=== PATIENT | male | born 1960 | race Caucasian/White ===

== ENCOUNTER → 2016-09-28 | Outpatient (REF) | payer OTHER ==
[2016-09-28 13:27] LABS: ALBUMIN 3.9 GM/DL (3.2-5.2); ALKALINE PHOSPHATASE 76 U/L (45-117); ALT/SGPT 36 U/L (12-78); ANION GAP 9 MEQ/L (8-16); AST/SGOT 19 U/L (15-37); BILIRUBIN,TOTAL 0.6 MG/DL (0.2-1.0); BLOOD UREA NITROGEN 21 MG/DL (7-18); CALCIUM LEVEL 8.9 MG/DL (8.5-10.1); CARBON DIOXIDE LEVEL 29 MEQ/L (21-32); CHLORIDE LEVEL 107 MEQ/L (98-107); CHOLESTEROL LEVEL 198 MG/DL (<200); CREATININE FOR GFR 1.05 MG/DL (0.70-1.30); GLOMERULAR FILTRATION RATE > 60.0 (>56); GLUCOSE, FASTING 85 MG/DL (70-105); POTASSIUM SERUM 4.4 MEQ/L (3.5-5.1); SODIUM LEVEL 145 MEQ/L (136-145); TOTAL PROTEIN 6.5 GM/DL (6.4-8.2); TRIGLYCERIDES LEVEL 100 MG/DL (<150)
== END ==
LOC: M LABSMT 12:23
PROVIDERS: ATTEND Family Medicine
DX: E03.9 Hypothyroidism, unspecified (principal); E78.5 Hyperlipidemia, unspecified

== ENCOUNTER → 2017-02-25 | Outpatient (REF) | payer OTHER ==
[2017-02-25 14:23] LABS: BASO % 0.8 % (0.0-1.0); EOS # 0.3 K/mm3 (0.0-0.50); EOS % 6.3 % (0.0-3.0); LARGE UNSTAINED CELL # 0.1 K/mm3 (0.0-0.4); LARGE UNSTAINED CELL % 1.9 % (0.0-4.0); LYMPH # 1.1 K/mm3 (1.5-4.5); LYMPH % 23.1 % (24.0-44.0); MEAN CORPUSCULAR HEMOGLOBIN 32.8 pg (27.0-33.0); MEAN CORPUSCULAR HGB CONC 35.5 g/dl (32.0-36.5); MEAN CORPUSCULAR VOLUME 92.2 fl (80.0-96.0); MONO # 0.4 K/mm3 (0.0-0.8); MONO % 9.5 % (0.0-5.0); NEUTROPHILS # 2.5 K/mm3 (1.8-7.7); NEUTROPHILS % 58.4 % (36.0-66.0); PLATELET COUNT, AUTOMATED 192 k/mm3 (150-450); RED CELL DISTRIBUTION WIDTH 11.8 % (11.5-14.5); WHITE BLOOD COUNT 4.3 K/mm3 (4.0-10.0)
[2017-02-25 14:24] LABS: ALBUMIN 3.8 GM/DL (3.2-5.2); ALBUMIN/GLOBULIN RATIO 1.46 (1.00-1.93); ALKALINE PHOSPHATASE 68 U/L (45-117); ALT/SGPT 39 U/L (12-78); ANION GAP 6 MEQ/L (8-16); AST/SGOT 20 U/L (15-37); BILIRUBIN,TOTAL 0.7 MG/DL (0.2-1.0); BLOOD UREA NITROGEN 22 MG/DL (7-18); CALCIUM LEVEL 8.7 MG/DL (8.5-10.1); CARBON DIOXIDE LEVEL 31 MEQ/L (21-32); CHLORIDE LEVEL 105 MEQ/L (98-107); CHOLESTEROL LEVEL 192 MG/DL (<200); CREATININE FOR GFR 1.03 MG/DL (0.70-1.30); GLOMERULAR FILTRATION RATE > 60.0 (>56); GLUCOSE, FASTING 95 MG/DL (70-105); POTASSIUM SERUM 4.1 MEQ/L (3.5-5.1); SODIUM LEVEL 142 MEQ/L (136-145); TOTAL PROTEIN 6.4 GM/DL (6.4-8.2); TRIGLYCERIDES LEVEL 86 MG/DL (<150)
== END ==
LOC: M LABDRWAD 13:08
PROVIDERS: ATTEND Family Medicine
DX: Z00.00 Encounter for general adult medical examination without abnormal findings (principal); R73.9 Hyperglycemia, unspecified

== ENCOUNTER → 2017-11-19 | Outpatient (REF) | payer OTHER | LOC: M LABDRWAD 13:21 | DX: E03.9 Hypothyroidism, unspecified (principal) ==

== ENCOUNTER → 2017-12-10 | Outpatient (CLI) | payer OTHER | LOC: M SLEEP 19:51 | DX: G47.30 Sleep apnea, unspecified (principal) ==

== ENCOUNTER → 2018-03-12 | Outpatient (REF) | payer OTHER ==
[2018-03-12 13:29] LABS: HEMATOCRIT 42.7 % (42.0-52.0); HEMOGLOBIN 15.5 g/dl (13.5-17.5); MEAN CORPUSCULAR HEMOGLOBIN 33.3 pg (27.0-33.0); MEAN CORPUSCULAR HGB CONC 36.3 g/dl (32.0-36.5); MEAN CORPUSCULAR VOLUME 91.8 fl (80.0-96.0); PLATELET COUNT, AUTOMATED 211 10^3/uL (150-450); RED BLOOD COUNT 4.65 10^6/uL (4.30-6.10); RED CELL DISTRIBUTION WIDTH 11.2 % (11.5-14.5); WHITE BLOOD COUNT 3.8 10^3/uL (4.0-10.0)
[2018-03-12 14:18] LABS: ALBUMIN 3.8 GM/DL (3.2-5.2); ALBUMIN/GLOBULIN RATIO 1.36 (1.00-1.93); ALKALINE PHOSPHATASE 75 U/L (45-117); ALT/SGPT 65 U/L (12-78); ANION GAP 6 MEQ/L (8-16); AST/SGOT 40 U/L (7-37); BILIRUBIN,TOTAL 0.7 MG/DL (0.2-1.0); BLOOD UREA NITROGEN 19 MG/DL (7-18); CALCIUM LEVEL 8.5 MG/DL (8.5-10.1); CARBON DIOXIDE LEVEL 29 MEQ/L (21-32); CHLORIDE LEVEL 108 MEQ/L (98-107); CHOLESTEROL LEVEL 164 MG/DL (<200); CHOLESTEROL RISK RATIO 3.489 (<5); CREATININE FOR GFR 0.96 MG/DL (0.70-1.30); GLOMERULAR FILTRATION RATE > 60.0 (>56); GLUCOSE, FASTING 98 MG/DL (70-100); HDL CHOLESTEROL 47 MG/DL (>40); LDL CHOLESTEROL 102.6 MG/DL (<100); NON-HDL-C 117 MG/DL; POTASSIUM SERUM 4.3 MEQ/L (3.5-5.1); PROSTATIC SPECIFIC AG MONITOR 2.54 NG/ML (< 4.0); SODIUM LEVEL 143 MEQ/L (136-145); TOTAL PROTEIN 6.6 GM/DL (6.4-8.2); TRIGLYCERIDES LEVEL 72 MG/DL (<150)
== END ==
LOC: M LABDRWAD 12:29
DX: Z00.00 Encounter for general adult medical examination without abnormal findings (principal)

== ENCOUNTER → 2018-12-03 | Outpatient (REF) | payer OTHER ==
[2018-12-03 20:14] LABS: BLOOD UREA NITROGEN 20 MG/DL (7-18); CALCIUM LEVEL 8.6 MG/DL (8.5-10.1); CARBON DIOXIDE LEVEL 35 MEQ/L (21-32); CHLORIDE LEVEL 107 MEQ/L (98-107); CREATININE FOR GFR 0.98 MG/DL (0.70-1.30); GLOMERULAR FILTRATION RATE > 60.0 (>56); GLUCOSE, FASTING 65 MG/DL (70-100); POTASSIUM SERUM 4.5 MEQ/L (3.5-5.1); SODIUM LEVEL 144 MEQ/L (136-145)
[2018-12-03 20:18] LABS: HEMATOCRIT 45.9 % (42.0-52.0); HEMOGLOBIN 15.9 g/dl (13.5-17.5); MEAN CORPUSCULAR HEMOGLOBIN 32.4 pg (27.0-33.0); MEAN CORPUSCULAR HGB CONC 34.6 g/dl (32.0-36.5); MEAN CORPUSCULAR VOLUME 93.5 fl (80.0-96.0); PLATELET COUNT, AUTOMATED 223 10^3/uL (150-450); RED BLOOD COUNT 4.91 10^6/uL (4.30-6.10); WHITE BLOOD COUNT 4.3 10^3/uL (4.0-10.0)
== END ==
LOC: M LABDRWAD 19:29
PROVIDERS: ATTEND Surgery
DX: K40.90 Unilateral inguinal hernia, without obstruction or gangrene, not specified as recurrent (principal)

== ENCOUNTER → 2019-02-23 | Outpatient (REF) | payer OTHER ==
[2019-02-23 13:36] LABS: HEMATOCRIT 45.2 % (42.0-52.0); HEMOGLOBIN 15.9 g/dl (13.5-17.5); MEAN CORPUSCULAR HEMOGLOBIN 32.6 pg (27.0-33.0); MEAN CORPUSCULAR HGB CONC 35.2 g/dl (32.0-36.5); MEAN CORPUSCULAR VOLUME 92.6 fl (80.0-96.0); PLATELET COUNT, AUTOMATED 229 10^3/uL (150-450); RED BLOOD COUNT 4.88 10^6/uL (4.30-6.10); WHITE BLOOD COUNT 4.4 10^3/uL (4.0-10.0)
== END ==
LOC: M LABDRWAD 12:47
PROVIDERS: ATTEND Family Medicine
DX: Z00.00 Encounter for general adult medical examination without abnormal findings (principal)

== ENCOUNTER → 2019-03-24 | Outpatient (REF) | payer OTHER ==
[2019-03-24 12:52] LABS: ALBUMIN 3.6 GM/DL (3.2-5.2); ALT/SGPT 54 U/L (12-78); BILIRUBIN,TOTAL 0.5 MG/DL (0.2-1.0); BLOOD UREA NITROGEN 19 MG/DL (7-18); CALCIUM LEVEL 8.2 MG/DL (8.5-10.1); CARBON DIOXIDE LEVEL 29 MEQ/L (21-32); CHLORIDE LEVEL 109 MEQ/L (98-107); CHOLESTEROL LEVEL 168 MG/DL (<200); CHOLESTEROL RISK RATIO 3.574 (<5); CREATININE FOR GFR 0.99 MG/DL (0.70-1.30); FREE T4 0.99 NG/DL (0.76-1.46); GLOMERULAR FILTRATION RATE > 60.0 (>56); GLUCOSE, FASTING 91 MG/DL (70-100); HDL CHOLESTEROL 47 MG/DL (>40); LDL CHOLESTEROL 106 MG/DL (<100); NON-HDL-C 121 MG/DL; POTASSIUM SERUM 4.3 MEQ/L (3.5-5.1); PROSTATIC SPECIFIC AG MONITOR 2.81 NG/ML (< 4.00); SODIUM LEVEL 144 MEQ/L (136-145); TOTAL PROTEIN 6.3 GM/DL (6.4-8.2); TRIGLYCERIDES LEVEL 76 MG/DL (<150)
== END ==
LOC: M LABDRWAD 12:14
PROVIDERS: ATTEND Family Medicine
DX: Z00.00 Encounter for general adult medical examination without abnormal findings (principal)

== ENCOUNTER → 2019-10-07 | Outpatient (REF) | payer OTHER ==
[2019-10-07 13:43] LABS: FREE T4 1.05 NG/DL (0.76-1.46); THYROID STIMULATING HORMONE 2.15 uIU/ML (0.358-3.740)
== END ==
LOC: M LABDRWAD 12:56
PROVIDERS: ATTEND Family Medicine
DX: E03.9 Hypothyroidism, unspecified (principal)

== ENCOUNTER → 2020-01-12 | Outpatient (REF) | payer OTHER ==
[2020-01-12 13:00] LABS: HEMATOCRIT 47.9 % (42.0-52.0); HEMOGLOBIN 17.1 g/dl (13.5-17.5); MEAN CORPUSCULAR HEMOGLOBIN 33.6 pg (27.0-33.0); MEAN CORPUSCULAR HGB CONC 35.7 g/dl (32.0-36.5); MEAN CORPUSCULAR VOLUME 94.1 fl (80.0-96.0); PLATELET COUNT, AUTOMATED 229 10^3/uL (150-450); RED BLOOD COUNT 5.09 10^6/uL (4.30-6.10); WHITE BLOOD COUNT 4.9 10^3/uL (4.0-10.0)
[2020-01-12 13:18] LABS: ALBUMIN 3.8 GM/DL (3.2-5.2); ALT/SGPT 43 U/L (12-78); BILIRUBIN,TOTAL 0.8 MG/DL (0.2-1.0); BLOOD UREA NITROGEN 21 MG/DL (7-18); CALCIUM LEVEL 8.8 MG/DL (8.5-10.1); CARBON DIOXIDE LEVEL 30 MEQ/L (21-32); CHLORIDE LEVEL 108 MEQ/L (98-107); CHOLESTEROL LEVEL 173 MG/DL (<200); CHOLESTEROL RISK RATIO 4.325 (<5); CREATININE FOR GFR 0.99 MG/DL (0.70-1.30); GLOMERULAR FILTRATION RATE > 60.0 (>56); GLUCOSE, FASTING 87 MG/DL (70-100); HDL CHOLESTEROL 40 MG/DL (>40); LDL CHOLESTEROL 113 MG/DL (<100); NON-HDL-C 133 MG/DL; SODIUM LEVEL 141 MEQ/L (136-145); TOTAL PROTEIN 6.7 GM/DL (6.4-8.2); TRIGLYCERIDES LEVEL 99 MG/DL (<150)
== END ==
LOC: M LABDRWAD 12:32
PROVIDERS: ATTEND Family Medicine
DX: Z00.00 Encounter for general adult medical examination without abnormal findings (principal)

== ENCOUNTER → 2020-05-09 | Outpatient (REF) | payer OTHER ==
[2020-06-25 23:07] LABS: BASO # 0.1 10^3/uL (0.0-0.2); EOS # 0.2 10^3/uL (0.0-0.5); EOS % 3.7 % (0.0-3.0); HEMATOCRIT 47.1 % (42.0-52.0); HEMOGLOBIN 16.6 g/dl (13.5-17.5); LYMPH # 1.5 10^3/uL (1.5-5.0); MEAN CORPUSCULAR HGB CONC 35.2 g/dl (32.0-36.5); MEAN CORPUSCULAR VOLUME 96.5 fl (80.0-96.0); MONO # 0.6 10^3/uL (0.0-0.8); MONO % 12.9 % (0.0-5.0); NEUTROPHILS # 2.6 10^3/uL (1.5-8.5); NEUTROPHILS % 52.2 % (36.0-66.0); PLATELET COUNT, AUTOMATED 229 10^3/uL (150-450); RED BLOOD COUNT 4.88 10^6/uL (4.30-6.10); WHITE BLOOD COUNT 4.9 10^3/uL (4.0-10.0)
[2020-07-04 21:32] LABS: HEMOGLOBIN A1c 4.9 %
[2020-07-05 00:43] LABS: ALT/SGPT 54 U/L (12-78); BILIRUBIN,TOTAL 0.7 MG/DL (0.2-1.0); BLOOD UREA NITROGEN 19 MG/DL (7-18); CALCIUM LEVEL 8.8 MG/DL (8.8-10.2); CARBON DIOXIDE LEVEL 30 MEQ/L (21-32); CHLORIDE LEVEL 106 MEQ/L (98-107); CK-MB VALUE MASS 5.2 NG/ML (<3.6); CPK CREATINE PHOSPHOKINASE 373 U/L (39-308); CREATININE FOR GFR 1.08 MG/DL (0.70-1.30); GLOMERULAR FILTRATION RATE > 60.0 (>49); GLUCOSE, FASTING 90 MG/DL (70-100); MB/CK RELATIVE INDEX 1.39 (< OR =4); POTASSIUM SERUM 4.3 MEQ/L (3.5-5.1); SODIUM LEVEL 140 MEQ/L (136-145); THYROXINE (T4) 10.1 UG/DL (4.5-12.0); TOTAL PROTEIN 6.8 GM/DL (6.4-8.2); TROPONIN I < 0.02 NG/ML (< 0.10)
== END ==
LOC: M LABDRWAD 15:23
PROVIDERS: ATTEND Family Medicine
DX: R07.9 Chest pain, unspecified (principal); R53.81 Other malaise; R73.9 Hyperglycemia, unspecified

== ENCOUNTER → 2020-09-25 | Outpatient (CLI) | payer SELFPAY | LOC: M LABSMTC 09:53 | PROVIDERS: ATTEND Pediatrics | DX: Z20.828 Contact with and (suspected) exposure to other viral communicable diseases (principal) ==

== ENCOUNTER → 2021-01-18 | Outpatient (REF) | payer OTHER ==
[2021-01-18 14:34] LABS: HEMATOCRIT 43.7 % (42.0-52.0); HEMOGLOBIN 15.2 g/dl (13.5-17.5); MEAN CORPUSCULAR HEMOGLOBIN 32.3 pg (27.0-33.0); MEAN CORPUSCULAR HGB CONC 34.8 g/dl (32.0-36.5); MEAN CORPUSCULAR VOLUME 92.8 fl (80.0-96.0); PLATELET COUNT, AUTOMATED 228 10^3/uL (150-450); RED BLOOD COUNT 4.71 10^6/uL (4.30-6.10); WHITE BLOOD COUNT 3.9 10^3/uL (4.0-10.0)
[2021-01-18 15:13] LABS: ALBUMIN 3.7 GM/DL (3.2-5.2); ALT/SGPT 47 U/L (12-78); BILIRUBIN,TOTAL 0.8 MG/DL (0.2-1.0); BLOOD UREA NITROGEN 25 MG/DL (7-18); CALCIUM LEVEL 9.4 MG/DL (8.8-10.2); CARBON DIOXIDE LEVEL 29 MEQ/L (21-32); CHLORIDE LEVEL 106 MEQ/L (98-107); CHOLESTEROL LEVEL 170 MG/DL (<200); CHOLESTEROL RISK RATIO 3.953 (<5); CREATININE FOR GFR 0.94 MG/DL (0.70-1.30); GLOMERULAR FILTRATION RATE > 60.0 (>49); GLUCOSE, FASTING 78 MG/DL (70-100); HDL CHOLESTEROL 43 MG/DL (>40); LDL CHOLESTEROL 111 MG/DL (<100); NON-HDL-C 127 MG/DL; POTASSIUM SERUM 4.8 MEQ/L (3.5-5.1); SODIUM LEVEL 139 MEQ/L (136-145); TOTAL PROTEIN 6.3 GM/DL (6.4-8.2); TRIGLYCERIDES LEVEL 78 MG/DL (<150)
== END ==
LOC: M LABDRWAD 13:12
PROVIDERS: ATTEND Family Medicine
DX: Z00.00 Encounter for general adult medical examination without abnormal findings (principal)
CPT/HCPCS: 36415; 80053; 80061; 84443; 85027; G0103

== ENCOUNTER → 2022-01-22 | Outpatient (CLI) | payer OTHER ==
[2022-01-22 13:02] LABS: HEMATOCRIT 42.7 % (42.0-52.0); HEMOGLOBIN 14.9 g/dl (13.5-17.5); MEAN CORPUSCULAR HEMOGLOBIN 33.3 pg (27.0-33.0); MEAN CORPUSCULAR HGB CONC 34.9 g/dl (32.0-36.5); MEAN CORPUSCULAR VOLUME 95.5 fl (80.0-96.0); PLATELET COUNT, AUTOMATED 217 10^3/uL (150-450); RED BLOOD COUNT 4.47 10^6/uL (4.30-6.10); WHITE BLOOD COUNT 4.2 10^3/uL (4.0-10.0)
[2022-01-22 14:01] LABS: ALBUMIN 3.5 GM/DL (3.2-5.2); ALT/SGPT 33 U/L (12-78); BILIRUBIN,TOTAL 0.9 MG/DL (0.2-1.0); BLOOD UREA NITROGEN 22 MG/DL (7-18); CALCIUM LEVEL 8.4 MG/DL (8.8-10.2); CARBON DIOXIDE LEVEL 27 MEQ/L (21-32); CHLORIDE LEVEL 108 MEQ/L (98-107); CHOLESTEROL LEVEL 153 MG/DL (<200); CREATININE FOR GFR 0.97 MG/DL (0.70-1.30); GLOMERULAR FILTRATION RATE > 60.0 (>49); GLUCOSE, FASTING 89 MG/DL (70-100); HDL CHOLESTEROL 45 MG/DL (>40); LDL CHOLESTEROL 94 MG/DL (<100); NON-HDL-C 108 MG/DL; POTASSIUM SERUM 4.4 MEQ/L (3.5-5.1); SODIUM LEVEL 140 MEQ/L (136-145); TRIGLYCERIDES LEVEL 70 MG/DL (<150)
== END ==
LOC: M ADAMS 08:13
PROVIDERS: ATTEND Family Medicine
DX: Z00.00 Encounter for general adult medical examination without abnormal findings (principal)
CPT/HCPCS: 36415; 80053; 80061; 84443; 85027; G0103

== ENCOUNTER → 2022-06-25 | Outpatient (REF) | payer OTHER ==
[2022-06-25 13:05] LABS: APPEARANCE, URINE MANUAL CLEAR (CLEAR); COLOR, URINE MANUAL YELLOW (YELLOW)
[2022-06-25 13:07] LABS: BILIRUBIN, URINE MANUAL NEGATIVE (NEGATIVE); BLOOD URINE MANUAL NEGATIVE (NEGATIVE); GLUCOSE, URINE (UA) MANUAL NEGATIVE (NEGATIVE); KETONE, URINE MANUAL NEGATIVE (NEGATIVE); LEUKOCYTE ESTERASE, URINE MAN NEGATIVE (NEGATIVE); NITRITE, URINE MANUAL NEGATIVE (NEGATIVE); PROTEIN, URINE MANUAL NEGATIVE (NEGATIVE); SPECIFIC GRAVITY,URINE MANUAL 1.015 (1.002-1.035); UROBILINOGEN, URINE MANUAL NORMAL (NORMAL)
== END ==
LOC: M LABDRWAD 12:31
PROVIDERS: ATTEND Family Medicine
DX: R39.12 Poor urinary stream (principal)
CPT/HCPCS: 36415; 81002; G0103

== ENCOUNTER → 2023-03-13 | Outpatient (REF) | payer OTHER ==
[2023-03-13 12:19] LABS: HEMATOCRIT 44.2 % (42.0-52.0); HEMOGLOBIN 15.2 g/dl (13.5-17.5); MEAN CORPUSCULAR HEMOGLOBIN 32.7 pg (27.0-33.0); MEAN CORPUSCULAR HGB CONC 34.4 g/dl (32.0-36.5); MEAN CORPUSCULAR VOLUME 95.1 fl (80.0-96.0); PLATELET COUNT, AUTOMATED 224 10^3/uL (150-450); RED BLOOD COUNT 4.65 10^6/uL (4.30-6.10)
[2023-03-13 12:43] LABS: ALBUMIN 3.8 G/DL (3.2-5.2); ALKALINE PHOSPHATASE 77 U/L (46-116); ALT/SGPT 53 U/L (7.0-40); AST/SGOT 32 U/L (<34); BILIRUBIN,TOTAL 0.9 MG/DL (0.3-1.2); BLOOD UREA NITROGEN 19 MG/DL (9-23); CALCIUM LEVEL 9.1 MG/DL (8.3-10.6); CARBON DIOXIDE LEVEL 30 MMOL/L (20-31); CHLORIDE LEVEL 106 MMOL/L (98-107); CHOLESTEROL LEVEL 159 MG/DL (<200); CHOLESTEROL RISK RATIO 3.44 (<5); CREATININE FOR GFR 1.04 MG/DL (0.70-1.30); GLOMERULAR FILTRATION RATE > 60.0 (>49); GLUCOSE, FASTING 89 MG/DL (74-106); HDL CHOLESTEROL 46.1 MG/DL (>40); LDL CHOLESTEROL 101.1 MG/DL (<100); NON-HDL-C 112.9 MG/DL; POTASSIUM SERUM 4.5 MMOL/L (3.5-5.1); SODIUM LEVEL 140 MMOL/L (136-145); TRIGLYCERIDES LEVEL 59 MG/DL (<150)
[2023-03-13 12:45] LABS: THYROID STIMULATING HORMONE 3.243 uIU/ML (0.55-4.78)
== END ==
LOC: M LABDRAWC 11:04
PROVIDERS: ATTEND Family Medicine
DX: Z00.00 Encounter for general adult medical examination without abnormal findings (principal)
CPT/HCPCS: 36415; 80053; 80061; 84443; 85027; G0103

== ENCOUNTER → 2024-02-27 | Outpatient (REF) | payer OTHER ==
[2024-02-27 18:19] LABS: HEMATOCRIT 44.2 % (42.0-52.0); HEMOGLOBIN 15.4 g/dl (13.5-17.5); MEAN CORPUSCULAR HGB CONC 34.8 g/dl (32.0-36.5); MEAN CORPUSCULAR VOLUME 94.6 fl (80.0-96.0); PLATELET COUNT, AUTOMATED 208 10^3/uL (150-450); RED BLOOD COUNT 4.67 10^6/uL (4.30-6.10); WHITE BLOOD COUNT 3.6 10^3/uL (4.0-10.0)
[2024-02-27 18:46] LABS: ALBUMIN 3.7 G/DL (3.2-5.2); ALKALINE PHOSPHATASE 89 U/L (46-116); ALT/SGPT 46 U/L (7.0-40); AST/SGOT 30 U/L (<34); BILIRUBIN,TOTAL 1.1 MG/DL (0.3-1.2); BLOOD UREA NITROGEN 19 MG/DL (9-23); CALCIUM LEVEL 8.9 MG/DL (8.3-10.6); CARBON DIOXIDE LEVEL 29 MMOL/L (20-31); CHLORIDE LEVEL 108 MMOL/L (98-107); CHOLESTEROL LEVEL 158 MG/DL (<200); CHOLESTEROL RISK RATIO 3.23 (<5); CREATININE FOR GFR 1.05 MG/DL (0.70-1.30); GLOMERULAR FILTRATION RATE > 60.0 (>49); GLUCOSE, FASTING 93 MG/DL (74-106); HDL CHOLESTEROL 48.8 MG/DL (>40); LDL CHOLESTEROL 98.8 MG/DL (<100); NON-HDL-C 109.2 MG/DL; POTASSIUM SERUM 4.9 MMOL/L (3.5-5.1); PSA SCREENING 2.89 NG/ML (< 4.00); SODIUM LEVEL 140 MMOL/L (136-145); TOTAL PROTEIN 6.1 G/DL (5.7-8.2); TRIGLYCERIDES LEVEL 52 MG/DL (<150)
[2024-02-27 18:50] LABS: THYROID STIMULATING HORMONE 4.062 uIU/ML (0.55-4.78)
== END ==
LOC: M LABDRWCV 17:21
PROVIDERS: ATTEND Family Medicine
DX: Z00.00 Encounter for general adult medical examination without abnormal findings (principal)
CPT/HCPCS: 36415; 80053; 80061; 84443; 85027; G0103

== ENCOUNTER → 2024-07-29 | Outpatient (CLI) | payer OTHER | LOC: M PLAIMG 15:07 | PROVIDERS: ATTEND Nurse Practitioner | DX: H90.A22 Sensorineural hearing loss, unilateral, left ear, with restricted hearing on the contralateral side (principal); H70.92 Unspecified mastoiditis, left ear ==